=== PATIENT | female | born 1950 ===

== ENCOUNTER 2022-11-15 08:16 | Outpatient (CLI) | payer OTHER | END 2022-11-15 08:19 | disposition home or self-care (01) | LOC: SONOGRAMA 08:16 | PROVIDERS: ATTEND Pathology Anatomic Pathology & Clinical Pathology | DX: D34 Benign neoplasm of thyroid gland (principal); E04.9 Nontoxic goiter, unspecified; E06.5 Other chronic thyroiditis ==